=== PATIENT | female | born 1985 | race Hispanic/Latino ===

== ENCOUNTER 2016-06-24 10:29 | Emergency (ER) | payer OTHER ==
[~2016-06-24] VITALS: Ht 129.5 cm; Wt 55.9 kg
[2016-06-24 10:32] VITALS: BP 95/63; PULSE 75; RESP 16; O2SAT 99
--- NOTE | 2016-06-24 10:43 | ED.REPORT ---
HPI-General Illness Date of Service Jun 24, 2016 ED Provider: Deirdre Cortes MD The patient is a 30 year old female who is currently 9 weeks presents to the emergency department complaining of feeling faint. The patient states this morning she felt like she was going to faint. She felt hot, dizzy, and generally weak. She denies chest pain, palpitations or shortness of breath. She was on a [place] ride this [place] [facility]. She did not eat breakfast and has only drank 1 bottle of water. She has felt somewhat nauseous with this . She denies vaginal bleeding , vaginal discharge, abdominal pain or vomiting. Nursing Notes Stated Complaint: 9 WKS ,FEELING FAINT Chief Complaint: General Complaint Nursing Notes Reviewed: Yes Allergies: Coded Allergies: No Known Allergies (Unverified , 06/24/16) Scheduled Potassium Chloride (Potassium Chloride) 10 Meq Capsule.er 10 MEQ PO BID TAKE WITH FOOD General Time Seen by MD: 10:43 Chief Complaint Other (feels faint) Hx Obtained From: Patient Arrived By: Walk-in Sudden in Onset?: No Onset Occurred: 1 - 4 hours ago Symptom Duration: Since onset Severity: Current: No pain currently Severity: Maximum: No pain Recent Healthcare: No recent doctor visit, No recent hospitalization Similar Sx Previous: No Past Medical History Past Medical History Migraines Past Surgical History None Family History Noncontributory Smoking History Unknown if Ever Smoker Social History Other Social History: Good social support, Lives with children, Local resident Ambulatory Status Independent Review of Systems +feels faint, felt hot Full Review of Systems Respiratory: Denies: Shortness of breath Cardiovascular: Denies: Chest pain, Palpitations GI: Reports: Nausea, Denies: Abdominal pain, Vomiting Female: Reports: , Denies: Vaginal bleeding - abnl, Vaginal discharge Neurologic: Reports: Change LOC (felt faint), Dizziness, Lightheaded, Weakness , Denies: Syncope Complete sys rev & neg: except as marked. Physical Exam Vital Signs Vital Signs Date Time Temp Pulse Resp B/P Pulse Ox O2 Delivery O2 Flow Rate FiO2 06/24/16 13:20 82 14 109/46 100 Room Air 06/24/16 10:50 81 22 111/57 100 Room Air 06/24/16 10:47 65 21 105/44 100 Room Air 3/31/17 10:32 36.6 75 16 95/63 99 Room Air Initial VS: Reviewed, Vital signs abnormal Head / Eyes: Atraumatic, Normocephalic, PERRL ENT: Mucous membranes moist, Conjunctiva normal, No scleral icterus Neck: Supple, Non-tender, Full range of motion Respiratory: Breath sounds normal, Clear to auscultation, No respiratory distress Cardiovascular: Regular rate & rhythm, Heart sounds normal, Intact distal pulses Abdomen / GI: Soft, Non-tender, No guarding, No rebound, No distention Lymphatic: No lymphadenopathy Extremities: Vascular intact, Neuro intact, No swelling, No tenderness Skin: Warm, Dry, No cyanosis Neurologic: Alert, Oriented, Nonfocal Psychiatric: Mood/affect normal, Behavior normal, Normal thought content General/Constitutional: Awake, Alert, Cooperative Interpretation & Diagnostics Lab Results Interpretation Result Diagram: 06/24/16 1130 Test 06/24/16 10:40 06/24/16 11:30 Urine Color Yellow (YELLOW) Urine Appearance Cloudy (CLEAR,HAZY) Urine pH 7.0 (5.0-8.0) Urine Specific [place] 1.020 (1.003-1.035) Urine Protein Tracemg/dL (NEG,TRACE) Urine Glucose (UA) Negativemg/dL (NEGATIVE) Urine Ketones Negativemg/dL (NEGATIVE) Urine Occult Blood Negative (NEGATIVE) Urine Nitrite Negative (NEGATIVE) Urine Bilirubin Negative (NEGATIVE) Urine Urobilinogen Normalmg/dL (NORMAL) Urine Leukocyte Esterase Trace (NEGATIVE) Urine RBC 0-2/hpf (0-2) Urine WBC 0-5/hpf (0-5) Urine Epithelial Cells Occasional/hpf (NONE-MOD) Urine Crystals None seen (NONE SEEN) Urine Bacteria Moderate/hpf (NONE-FEW) Urine Hyaline Casts None/lpf (NONE) Urine Granular Casts None seen (NONE SEEN) Urine Waxy Casts None seen (NONE SEEN) Urine Red Blood Cell Casts None seen (NONE SEEN) Urine White Blood Cell Casts None seen (NONE SEEN) Urine Mucus Present (None Seen) Urine Trichomonas None seen (NONE SEEN) Urine Yeast None (NONE SEEN) Urinalysis Comment None Urine Culture Reflexed Indicated Hold Urine Received (Received) Sodium Level 134mEq/L (134-144) Potassium Level 3.2mEq/L (3.5-5.2) Chloride Level 98mEq/L (97-108) Carbon Dioxide Level 22mmol/L (18-29) Blood Urea Nitrogen 6mg/dL (6-20) Creatinine 0.47mg/dL (0.57-1.00) Estimat Glomerular Filtration Rate 226mL/min (>59) Glucose Level 70mg/dL (60-99) Calcium Level 9.0mg/dL (8.5-10.1) Magnesium Level 1.9mg/dL (1.6-2.6) ECG Interpretation ECG Interpretation: Sinus rhythm with a rate of 69 Time: 11:33 Interpreted by: ED physician Re-Eval/Medical Decision Med Decision/Clinical Course The patient complains of dizziness, which is a normal exam. The patient was dizzy with standing and did have an increase in her pulse. She feels much better after receiving IV hydration. Differential diagnoses considered were electronic abnormality, dysrhythmia, dehydration, related issue, and urinary tract infection. Source of Hx: Old records Time of Eval: 12:52 Re-Evaluation/Progress Note: Rechecked the patient. She is feeling better. Discussed plan for discharge. All questions were addressed. Counseled Regarding: Diagnosis, Lab results, Need for follow-up, When/why to return to ED Discharge & Departure Primary Impression: Dizziness Additional Impressions: Hypokalemia Weeks of gestation: unspecified Qualified Code: Z33.1 - state, incidental Mild dehydration Disposition: Home Discharge Condition All VS Reviewed: Yes Condition: Stable Additional Instructions: Thank you for entrusting us with your care today. Your labs today show a low potassium but are otherwise normal. I have written you a prescription for potassium tablets. Make sure to eat regularly and drink plenty of fluids. Followup with your regular doctor next week for re-evaluation. Return to the emergency department for any new or concerning symptoms. Scribe Attestation Portions of this note were transcribed by Prema Joseph. I, Dr. Cortes personally performed the history, physical exam and medical decision-making; I reviewed and confirmed the accuracy of the information in the transcribed note. Signed by: Niki Vargas, 06/24/2016 at 1300. Deirdre Cortes MD Jun 24, 2016 10:43 Prema Joseph Jun 24, 2016 10:50
[2016-06-24 10:47] VITALS: BP 105/44; PULSE 65; RESP 21; O2SAT 100
[2016-06-24 10:50] VITALS: BP 111/57; PULSE 81; RESP 22; O2SAT 100
[2016-06-24] MEDS ORDERED: Dextrose 5% 0.9% NaCl 1,000 ML IV ONE (11:05)
[2016-06-24 11:49] LABS: COLOR,URINE YELLOW (YELLOW)
[2016-06-24 11:50] LABS: APPEARANCE,URINE CLOUDY (CLEAR,HAZY); OCCULT BLOOD,URINE NEGATIVE (NEGATIVE); UROBILINOGEN,URINE NORMAL (NORMAL)
[2016-06-24 12:09] LABS: Magnesium 1.9 mg/dL (1.6-2.6)
[2016-06-24] MEDS ORDERED: Potassium Chloride 20 mEq SR Tablet PO ONE (12:30)
[2016-06-24] MEDS ORDERED: POTA10CA42 PO (13:02)
[2016-06-24 13:20] VITALS: BP 109/46; PULSE 82; RESP 14; O2SAT 100
== END 2016-06-24 13:21 | disposition home or self-care (01) ==
LOC: SED 10:29
DX: O99.281 Endocrine, nutritional and metabolic diseases complicating pregnancy, first trimester (principal); E87.6 Hypokalemia; E86.0 Dehydration; R42 Dizziness and giddiness; Z3A.09 9 weeks gestation of pregnancy
CPT/HCPCS: 36415; 80048; 81000; 83735; 87086; 87088; 93005; 96365; 99284; J7042